=== PATIENT | male | born 1960 | race Two or more races ===

== ENCOUNTER 2017-10-04 19:05 | Emergency (ER) | payer SELFPAY ==
[2017-10-04] MEDS ORDERED: CEPHALEXIN 500 MG CAPSULE PO ONE (19:50)
[2017-10-04] MEDS ORDERED: OXYCODONE-ACETAMINOPHEN 5-325 MG TABLET PO ONE (19:50)
[2017-10-04] MEDS ORDERED: SULFAMETHOXAZOLE/TRIMETHOPRIM 800-160 MG TABLET PO ONE (19:50)
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
[2017-10-04 20:22] VITALS: BP 131/81
== END 2017-10-04 20:21 | disposition home or self-care (01) ==
LOC: ER 19:05
DX: L03.115 Cellulitis of right lower limb (principal); L02.91 Cutaneous abscess, unspecified; M79.604 Pain in right leg; F17.200 Nicotine dependence, unspecified, uncomplicated; I10 Essential (primary) hypertension
CPT/HCPCS: 99283

== ENCOUNTER 2017-10-17 08:49 | Inpatient (IN) | payer SELFPAY ==
--- NOTE | 2017-10-17 09:07 | RADIOLOGY REPORT (SQ) ---
EXAM DESCRIPTION: CT HEAD WITHOUT COMPLETED DATE/TIME: 10/17/2017 8:57 am REASON FOR STUDY: stroke S/S COMPARISON: None. TECHNIQUE: Axial images acquired through the brain without intravenous contrast. Images reviewed wi th bone, brain and subdural windows. Images stored on PACS. All CT scanners at this facility use dose modulation, iterative reconstruction, and/or weight based d osing when appropriate to reduce radiation dose to as low as reasonably achievable (ALARA). [facility]: Dose Right [facility]: CareDose [facility]: Dose Right [facility]: Teradose 4D [facility]: Eyewitness Surveillance RADIATION DOSE: mGy. LIMITATIONS: None. FINDINGS: VENTRICLES: Normal size and contour. CEREBRUM: No masses. No hemorrhage. No midline shift. No evidence for acute infarction. Normal gra y/white matter differentiation. No areas of low density in the white matter. CEREBELLUM: No masses. No hemorrhage. No alteration of density. No evidence for acute infarction. EXTRAAXIAL SPACES: No fluid collections. No masses. ORBITS AND GLOBE: No intra- or extraconal masses. Normal contour of globe without masses. CALVARIUM: No fracture. PARANASAL SINUSES: No fluid or mucosal thickening. SOFT TISSUES: No mass or hematoma. OTHER: No other significant finding. IMPRESSION: NORMAL BRAIN CT WITHOUT CONTRAST. EVIDENCE OF ACUTE STROKE: NO. COMMENT: Pertinent positive or negative findings of the imaging study reported as a CRITICAL EXAM t o ER PROVIDER at09:01 on 10/17/2017. Category of Critical Exam: Stroke protocol. Quality ID # [id number]: Final reports with documentation of one or more dose reduction techniques (e.g., Au tomated exposure control, adjustment of the mA and/or kV according to patient size, use of iterative reconstruction technique) TECHNICAL DOCUMENTATION: JOB ID: [id number] [employer]- All Rights Reserved
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
[2017-10-17 09:22] LABS: PROTHROMBIN TIME 13.9 SEC (11.4-15.4)
[2017-10-17] MEDS ORDERED: ALTEPLASE INJ 100 MG VIAL ONE (09:23)
[2017-10-17] MEDS ORDERED: ALTEPLASE INJ 100 MG VIAL IV ONE (09:27)
[2017-10-17] MEDS ORDERED: IPRATROPIUM/ALBUTEROL 0.5-2.5 MG/3 ML AMPUL NEB ONE ×3 (09:31→16:00)
[2017-10-17 09:33] LABS: ABSOLUTE BASOPHILS # (AUTO) 0.1 10^3/uL (0.0-0.2); ABSOLUTE LYMPHOCYTES (AUTO) 0.9 10^3/uL (0.5-4.7); ABSOLUTE MONOCYTES (AUTO) 0.9 10^3/uL (0.1-1.4); ABSOLUTE NEUT (AUTO) 5.1 10^3/uL (1.7-8.2); BASOPHILS % (AUTO) 0.9 % (0-2); EOSINOPHILS % (AUTO) 0.3 % (0-6); HEMATOCRIT 40.6 % (37.9-51.0); HEMOGLOBIN 13.2 g/dL (13.5-17.0); LYMPHOCYTES % (AUTO) 12.7 % (13-45); MEAN CORPUSCULAR HEMOGLOBIN 28.8 pg (27.0-33.4); MEAN CORPUSCULAR HGB CONC 32.5 g/dL (32.0-36.0); MEAN CORPUSCULAR VOLUME 89 fl (80-97); MONOCYTES % (AUTO) 12.9 % (3-13); PLATELET COUNT 359 10^3/uL (150-450); RED BLOOD COUNT 4.59 10^6/uL (4.35-5.55); RED CELL DISTRIBUTION WIDTH 14.1 % (11.5-14.0); SEGMENTED NEUTROPHILS % (AUTO) 73.2 % (42-78); TOTAL CELLS COUNTED % (AUTO) 100 %
[2017-10-17 09:43] LABS: ALANINE AMINOTRANSFERASE 26 U/L (21-72); ALBUMIN 3.8 g/dL (3.5-5.0); ALKALINE PHOSPHATASE 96 U/L (38-126); ANION GAP 10 (5-19); ASPARTATE AMINO TRANSFERASE 21 U/L (17-59); BILIRUBIN,DIRECT 0.3 mg/dL (0.0-0.4); BILIRUBIN,TOTAL 0.5 mg/dL (0.2-1.3); BLOOD UREA NITROGEN 13 mg/dL (7-20); CALCIUM 9.3 mg/dL (8.4-10.2); CARBON DIOXIDE 25 mmol/L (22-30); CHLORIDE 102 mmol/L (98-107); CREATINE KINASE 77 U/L (55-170); GLUCOSE 134 mg/dL (75-110); POTASSIUM 4.1 mmol/L (3.6-5.0); SODIUM 136.6 mmol/L (137-145); TOTAL PROTEIN 6.8 g/dL (6.3-8.2)
[2017-10-17 09:55] LABS: CREATINE KINASE MB < 0.22 ng/mL (<4.55); TROPONIN I 0.015 ng/mL
[2017-10-17] MEDS ORDERED: LABETALOL HCL INJ 20 MG/4 ML DISP.SYRIN IV PRN ×2 (10:46→11:40)
[2017-10-17] MEDS ORDERED: NORMAL SALINE 1000 ML 1,000 ML IV PRN (10:46)
[2017-10-17] MEDS ORDERED: HYDRALAZINE HCL INJ/PF 20 MG/1 ML SDV IV PRN (12:28)
[2017-10-17] MEDS ORDERED: INFLUENZA ADLT QUAD (36MOS+) 2017-18 VAC 0.5 ML SYR IM PRN (13:25)
--- NOTE | 2017-10-17 14:39 | RADIOLOGY REPORT (SQ) ---
EXAM DESCRIPTION: CAROTID DOPPLER COMPLETED DATE/TIME: 10/17/2017 2:25 pm REASON FOR STUDY: stroke COMPARISON: None. TECHNIQUE: Grayscale ultrasound, Doppler velocity and spectra, and color Doppler images acquired of the extra-cranial carotid and vertebral arteries. Images stored on PACS. LIMITATIONS: None. FINDINGS: RIGHT CAROTID CCA Velocities: Within normal limits. ICA Velocities Peak systolic 0.54 m/s. End diastolic 0.29 m/s. Proximal ICA/CCA peak systolic ratio 1.0. Spectra normal. No significant plaque. LEFT CAROTID CCA Velocities: Within normal limits. ICA Velocities Peak systolic 0.54 m/s. End diastolic 0.26 m/s. Proximal ICA/CCA peak systolic ratio 0.9. Spectra normal. No significant plaque. VERTEBRAL ARTERIES: Antegrade flow. Normal waveforms. SUBCLAVIAN ARTERIES: No finding. OTHER: No other significant finding. IMPRESSION: NO HEMODYNAMICALLY SIGNIFICANT STENOSIS. COMMENT: Quality ID #[id number]: Velocity criteria are extrapolated from the diameter data as defined by t he Society of Radiologists in Ultrasound Consensus Conference. Radiology 2003: 229; 340-346. TECHNICAL DOCUMENTATION: JOB ID: [id number] [employer]- All Rights Reserved
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
--- NOTE | 2017-10-17 20:19 | XCELERA REPORT ---
[address] [address] Transthoracic Echocardiogram Report Name: MANAV ENGEL Age: 56 yrs Gender: Male : 1960 Patient Status: Inpatient Patient Location: ICU^601^A Study Date: 10/17/2017 12:59 PM Height: 66 in Weight: 123 lb BSA: 1.6 m2 Procedure: A complete two-dimensional transthoracic echocardiogram was performed (2D, M-mode, spectral and color flow Doppler). The study was technically difficult with many images being suboptimal in quality. Reason For Study: stroke Ordering Physician: KAVON CARROLL Performed By: Rachel Lyn Interpretation Summary The study was technically difficult with many images being suboptimal in quality. There is severe mitral stenosis There is a mild amount of mitral regurgitation There is severe mitral leaflet calcification. The left ventricular ejection fraction is within normal limits. There is normal left ventricular wall thickness. The left ventricle is grossly normal size. Septal motion is consistent with post-operative state The right ventricle is mildly dilated. Right ventricular function cannot be assessed due to poor image quality. The right atrium is normal in size The left atrium is severely dilated. There is no aortic valve stenosis No aortic regurgitation is present. There is a mild amount of tricuspid regurgitation There is moderate pulmonary hypertension by echo Right ventricular systolic pressure is estimated to be elevated at 40- 50mmHg. The aortic root is not well visualized. The inferior vena cava appeared normal and decreased > 50% with respiration (RAP 5-10 mmHg) There is no pericardial effusion. Consider MAX if clinically indicated. May consider mobile cardiac telemetry monitoring (MCT) for ruling out transient AFIB. Can not R/O vegetation. Recommend multiple blood cultures and MAX. MMode/2D Measurements & Calculations RVDd: 3.3 cm LVIDd: 4.1 cm FS: 27.5 % Ao root diam: 2.0 cm IVSd: 0.76 cm LVIDs: 2.9 cm EDV(Teich): 72.1 ml LVPWd: 0.80 cmESV(Teich): 33.2 ml Ao root area: 3.3 cm2 EF(Teich): 54.0 % LVOT diam: 1.5 cm LVOT area: 1.8 cm2 Doppler Measurements & Calculations MV E max stacey: MV V2 max: MV dec slope: Ao V2 max: 266.2 cm/sec 308.1 cm/sec 327.1 cm/sec2 155.0 cm/sec MV A max stacey: MV max PG: MV dec time: Ao max P.2 cm/sec 38.1 mmHg 0.81 sec 9.6 mmHg MV E/A: 1.1 MV V2 mean: SHAHIDA(V,D): 1.2 cm2 174.8 cm/sec MV mean P.2 mmHg MV V2 VTI: 103.4 cm MVA(VTI): 0.29 cm2 LV V1 max PG: SV(LVOT): 30.1 ml PA V2 max: PI end-d stacey: 4.1 mmHg 80.0 cm/sec 104.3 cm/sec LV V1 mean PG: PA max P.6 mmHg 1.9 mmHg LV V1 max: 100.7 cm/sec LV V1 mean: 63.1 cm/sec LV V1 VTI: 16.3 cm TR max stacey: 309.9 cm/sec TR max P.4 mmHg Left Ventricle The left ventricle is grossly normal size. There is normal left ventricular wall thickness. The left ventricular ejection fraction is within normal limits. LV diastolic function could not be adequately assessed due to significant valve regurgitation and/or stenosis. Septal motion is consistent with post-operative state. Right Ventricle The right ventricle is mildly dilated. Right ventricular function cannot be assessed due to poor image quality. Atria The right atrium is normal in size. The left atrium is severely dilated. Interarterial septum not well visualized and not well dopplered. Cannot comment on ASD/PFO presence. Mitral Valve There is severe mitral leaflet calcification. There is severe mitral stenosis. There is a mild amount of mitral regurgitation. Aortic Valve The aortic valve is not well visualized secondary to technical limitations. There is no aortic valve stenosis. No aortic regurgitation is present. Tricuspid Valve The tricuspid valve is not well visualized secondary to technical limitations. There is no tricuspid stenosis. There is a mild amount of tricuspid regurgitation. There is moderate pulmonary hypertension by echo. Right ventricular systolic pressure is estimated to be elevated at 40- 50mmHg. Pulmonic Valve The pulmonic valve is not well visualized. Great Vessels The aortic root is not well visualized. The inferior vena cava appeared normal and decreased > 50% with respiration (RAP 5-10 mmHg). Effusions There is no pericardial effusion. Incidental Findings Consider MAX if clinically indicated. May consider mobile cardiac telemetry monitoring (MCT) for ruling out transient AFIB. Can not R/O vegetation. Recommend multiple blood cultures and MAX. : KAVON CARROLL > Christal Gauthier
[2017-10-17] MEDS ORDERED: ACETAMINOPHEN 325 MG TABLET ONE (20:29)
[2017-10-17] MEDS: IPRATROPIUM/ALBUTEROL 0.5-2.5 MG/3 ML AMPUL NEB SCH (20:30)
[2017-10-17 21:31] LABS: ANION GAP 10 (5-19); BLOOD UREA NITROGEN 12 mg/dL (7-20); CARBON DIOXIDE 22 mmol/L (22-30); CHLORIDE 102 mmol/L (98-107); GLUCOSE 133 mg/dL (75-110); MAGNESIUM 1.7 mg/dL (1.6-2.3); POTASSIUM 4.3 mmol/L (3.6-5.0); SODIUM 133.9 mmol/L (137-145)
[2017-10-17 21:53] LABS: APPEARANCE,URINE CLEAR; BILIRUBIN,URINE NEGATIVE (NEGATIVE); COLOR,URINE YELLOW; GLUCOSE, URINE >=500 mg/dL (NEGATIVE); KETONES,URINE NEGATIVE (NEGATIVE); LEUKOCYTE ESTERASE,URINE NEGATIVE (NEGATIVE); NITRITE,URINE NEGATIVE (NEGATIVE); PROTEIN,URINE NEGATIVE (NEGATIVE); URINE SPECIFIC GRAVITY 1.008; UROBILINOGEN,URINE NEGATIVE mg/dL (<2.0)
--- NOTE | 2017-10-17 23:06 | RADIOLOGY REPORT (SQ) ---
EXAM DESCRIPTION: CHEST SINGLE VIEW COMPLETED DATE/TIME: 10/17/2017 9:07 pm REASON FOR STUDY: COUGH, SOB COMPARISON: Earlier exam same date EXAM PARAMETERS: NUMBER OF VIEWS: One view. TECHNIQUE: Single frontal radiographic view of the chest acquired. RADIATION DOSE: NA LIMITATIONS: None. FINDINGS: LUNGS AND PLEURA: Mild increased interstitial markings. Basilar subsegmental atelectasis is present in the right lung base. No pneumothorax. MEDIASTINUM AND HILAR STRUCTURES: Stable. HEART AND VASCULAR STRUCTURES: Stable. BONES: No acute findings. HARDWARE: CABG. OTHER: No other significant finding. IMPRESSION: Mild increased interstitial markings. Basilar subsegmental atelectasis is present in th e right lung base. TECHNICAL DOCUMENTATION: JOB ID: [id number] [id number] [employer]- All Rights Reserved
[2017-10-17] MEDS ORDERED: MAGNESIUM SULFATE/D5W 1 GM/100 ML RTUPB IV ONE (23:18)
[2017-10-17] MEDS: MAGNESIUM SULFATE 1 GM/D5W 100 ML IV SCH (23:25)
[2017-10-18] MEDS: MAGNESIUM SULFATE 1 GM/D5W 100 ML IV SCH (00:26)
[2017-10-18] MEDS: ACETAMINOPHEN 325 MG TABLET PO PRN ×5 (03:43→22:15)
[2017-10-18 04:17] LABS: ABSOLUTE NEUT (AUTO) 5.6 10^3/uL (1.7-8.2); BASOPHILS % (AUTO) 0.5 % (0-2); EOSINOPHILS % (AUTO) 0.3 % (0-6); HEMATOCRIT 42.2 % (37.9-51.0); HEMOGLOBIN 13.8 g/dL (13.5-17.0); LYMPHOCYTES % (AUTO) 12.8 % (13-45); MEAN CORPUSCULAR HEMOGLOBIN 28.9 pg (27.0-33.4); MEAN CORPUSCULAR HGB CONC 32.6 g/dL (32.0-36.0); MEAN CORPUSCULAR VOLUME 89 fl (80-97); PLATELET COUNT 301 10^3/uL (150-450); RED BLOOD COUNT 4.77 10^6/uL (4.35-5.55); SEGMENTED NEUTROPHILS % (AUTO) 73.4 % (42-78); TOTAL CELLS COUNTED % (AUTO) 100 %; WHITE BLOOD COUNT 7.7 10^3/uL (4.0-10.5)
[2017-10-18] MEDS ORDERED: ACETAMINOPHEN 325 MG TABLET PO ONE (04:23)
[2017-10-18 04:32] LABS: ANION GAP 14 (5-19); BLOOD UREA NITROGEN 10 mg/dL (7-20); CALCIUM 8.9 mg/dL (8.4-10.2); CARBON DIOXIDE 22 mmol/L (22-30); CHLORIDE 104 mmol/L (98-107); CHOLESTEROL 167.95 mg/dL (0-200); GLUCOSE 102 mg/dL (75-110); POTASSIUM 4.4 mmol/L (3.6-5.0); SODIUM 140.2 mmol/L (137-145); TRIGLYCERIDES 99 mg/dL (<150)
[2017-10-18 04:42] LABS: DIRECT LDL 108 mg/dL (<100)
[2017-10-18] MEDS ORDERED: CLINDAMYCIN 900 MG/D5W RTU 50 ML IV ONE (04:45)
--- NOTE | 2017-10-18 08:02 | EKG REPORT ---
SEVERITY:- ABNORMAL ECG - SINUS RHYTHM ATRIAL PREMATURE COMPLEX BORDERLINE RIGHT AXIS DEVIATION ABNORMAL T, CONSIDER ISCHEMIA, ANT-LAT LEADS : Confirmed by: Etta Alcantara MD 18-Oct-2017 08:00:54
--- NOTE | 2017-10-18 08:02 | EKG REPORT ---
SEVERITY:- ABNORMAL ECG - SINUS RHYTHM SUPRAVENTRICULAR BIGEMINY CONSIDER RIGHT VENTRICULAR HYPERTROPHY ABNORMAL T, CONSIDER ISCHEMIA, ANT-LAT LEADS : Confirmed by: Etta Alcantara MD 18-Oct-2017 08:00:49
[2017-10-18] MEDS: IPRATROPIUM/ALBUTEROL 0.5-2.5 MG/3 ML AMPUL NEB SCH ×2 (08:31→13:44)
[2017-10-18] MEDS: PANTOPRAZOLE SODIUM 40 MG VIAL IV SCH (10:54)
[2017-10-18] MEDS: NICOTINE 21 MG/24 HR PATCH.TD24 TD SCH (10:56)
[2017-10-18] MEDS ORDERED: ACETAMINOPHEN 325 MG TABLET PO PRN (12:50)
[2017-10-18] MEDS ORDERED: VANCOMYCIN HCL 0 MG in DEXTROSE 5%-WATER 250 ML IV NR (13:00)
[2017-10-18] MEDS ORDERED: ACETAMINOPHEN 325 MG TABLET ONE (13:03)
[2017-10-18] MEDS ORDERED: CLINDAMYCIN 900 MG/D5W RTU 50 ML IV SCH (14:00)
[2017-10-18] MEDS ORDERED: VANCOMYCIN HCL 750 MG in DEXTROSE 5%-WATER 250 ML IV ONE (14:30)
--- NOTE | 2017-10-18 14:43 | RADIOLOGY REPORT (SQ) ---
EXAM DESCRIPTION: CT HEAD WITHOUT COMPLETED DATE/TIME: 10/18/2017 2:34 pm REASON FOR STUDY: Follow up stroke given TPA COMPARISON: 10/17/2017. TECHNIQUE: Axial images acquired through the brain without intravenous contrast. Images reviewed wi th bone, brain and subdural windows. Images stored on PACS. All CT scanners at this facility use dose modulation, iterative reconstruction, and/or weight based d osing when appropriate to reduce radiation dose to as low as reasonably achievable (ALARA). [facility]: Dose Right [facility]: CareDose [facility]: Dose Right [facility]: Teradose 4D [facility]: [email or web address] RADIATION DOSE: CT Rad equipment meets quality standard of care and radiation dose reduction techniq ues were employed. CTDIvol: 64.6 mGy. DLP: 1163 mGy-cm. mGy. LIMITATIONS: None. FINDINGS: VENTRICLES: Normal size and contour. CEREBRUM: No masses. No hemorrhage. No midline shift. There is a new area of decreased attenuation in the left frontal lobe, not present on the previous study. Normal coelho/white matter differentiatio n. CEREBELLUM: No masses. No hemorrhage. No alteration of density. No evidence for acute infarction. EXTRAAXIAL SPACES: No fluid collections. No masses. ORBITS AND GLOBE: No intra- or extraconal masses. Normal contour of globe without masses. CALVARIUM: No fracture. PARANASAL SINUSES: No fluid or mucosal thickening. SOFT TISSUES: No mass or hematoma. OTHER: No other significant finding. IMPRESSION: NEW AREA OF DECREASED ATTENUATION IN THE LEFT FRONTAL LOBE CONSISTENT WITH EVOLVING INFA RCT. NO EVIDENCE OF HEMORRHAGE. EVIDENCE OF ACUTE STROKE: YES. LEFT MCA COMMENT: Quality ID # [id number]: Final reports with documentation of one or more dose reduction techniques (e.g., Automated exposure control, adjustment of the mA and/or kV according to patient size, use of iterative reconstruction technique) TECHNICAL DOCUMENTATION: JOB ID: [id number] [employer]- All Rights Reserved
[2017-10-18 16:28] LABS: URINE AMPHETAMINES SCREEN NEGATIVE; URINE BARBITURATES SCREEN NEGATIVE; URINE BENZODIAZEPINES SCREEN NEGATIVE; URINE COCAINE SCREEN NEGATIVE; URINE MARIJUANA (THC) SCREEN NEGATIVE; URINE METHADONE SCREEN NEGATIVE; URINE PHENCYCLIDINE SCREEN NEGATIVE
[2017-10-18] MEDS: LEVALBUTEROL HCL NEB 1.25 MG/3 ML AMPUL NEB SCH (17:54)
[2017-10-18] MEDS ORDERED: PIPERACILLIN/TAZOBACTAM 3.375 GM VIAL IV SCH (18:00)
[2017-10-18] MEDS: PIPERACILLIN SODIUM/TAZOBACTAM 3.375 GM in NORMAL SALINE 100 ML IV SCH ×2 (18:18→23:05)
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
[2017-10-18] MEDS: ATORVASTATIN CALCIUM 80 MG TABLET PO SCH (21:13)
[2017-10-18] MEDS: VANCOMYCIN HCL 750 MG in DEXTROSE 5%-WATER 250 ML IV SCH (21:13)
[2017-10-18] MEDS ORDERED: KETOROLAC TROMETHAMINE INJ/PF 30 MG/1 ML SDV ONE (23:00)
[2017-10-18] MEDS ORDERED: KETOROLAC TROMETHAMINE INJ/PF 30 MG/1 ML SDV IV ONE (23:45)
[2017-10-19] MEDS: LEVALBUTEROL HCL NEB 1.25 MG/3 ML AMPUL NEB SCH ×3 (00:33→16:51)
[2017-10-19 04:14] LABS: ANION GAP 9 (5-19); BLOOD UREA NITROGEN 10 mg/dL (7-20); CALCIUM 8.5 mg/dL (8.4-10.2); CARBON DIOXIDE 23 mmol/L (22-30); CHLORIDE 108 mmol/L (98-107); GLUCOSE 118 mg/dL (75-110); POTASSIUM 3.8 mmol/L (3.6-5.0); SODIUM 139.7 mmol/L (137-145)
[2017-10-19] MEDS: PIPERACILLIN SODIUM/TAZOBACTAM 3.375 GM in NORMAL SALINE 100 ML IV SCH ×3 (05:14→18:24)
[2017-10-19] MEDS: PANTOPRAZOLE SODIUM 40 MG VIAL IV SCH (09:37)
[2017-10-19] MEDS: CLOPIDOGREL BISULFATE 75 MG TABLET PO SCH (09:42)
[2017-10-19] MEDS: ASPIRIN 325 MG TABLET PO SCH (09:46)
[2017-10-19] MEDS: NICOTINE 21 MG/24 HR PATCH.TD24 TD SCH (09:47)
[2017-10-19] MEDS: VANCOMYCIN HCL 750 MG in DEXTROSE 5%-WATER 250 ML IV SCH ×2 (09:53→22:06)
[2017-10-19] MEDS ORDERED: DILTIAZEM HCL 120 MG CAP.SR.24H PO SCH ×2 (10:00→15:47)
--- NOTE | 2017-10-19 12:16 | PDOC PROGRESS REPORT ---
Subjective Progress Note for:: 10/19/17 Subjective:: Patient seems to be doing better with gradual improvement. Pt is denying any chest arm or neck discomfort. Patient denying any PND, orthopnea. Patient denied any sustained palpitations, dizziness, syncope, near syncope. Patient denying any fever chills. Patient denying any other significant discomfort. Patient is maintaining sinus rhythm. Short run of paroxysmal atrial tachycardia noted. These are nonsustained. Review of systems: Rest review of systems negative. Medications: Medications have been reviewed. Reason For Visit: STROKE Physical Exam Vital Signs: Temp Pulse Resp BP Pulse Ox 98.4 F 91 29 H 113/87 H 100 10/19/17 10:00 10/19/17 10:00 10/19/17 10:18 10/19/17 10:18 10/19/17 10:18 Intake & Output 10/18/17 10/19/17 10/20/17 06:59 06:59 06:59 Intake Total 2409 2835 Output Total 2245 1570 115 Balance 164 1265 -115 Weight 56.8 kg 57.4 kg Exam: GENERAL: well-nourished and in no acute distress. Alert and oriented x3 HEAD: Atraumatic, normocephalic. EYES: Pupils equal round and reactive to light, extraocular movements intact, sclera anicteric, conjunctiva are normal. ENT: TMs normal, nares patent, oropharynx clear without exudates. Moist mucous membranes. No oral ulcerations or bleeding gums noted NECK: supple without lymphadenopathy. Trachea is central. No cervical or axillary lymphadenopathy noted. Carotids are 2+, JVD WNL LUNGS: Respiration seems nonlabored, no significant accessory muscle action noted. Breath sounds clear to auscultation bilaterally and equal noted. No wheezes rales or rhonchi noted. No significant dullness noted on percussion. CHEST: Palpation of the chest wall shows no significant chest wall tenderness. No other significant abnormalities noted. 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 No rubs, no gallops. ABDOMEN: Soft, no significant tenderness appreciated, normoactive bowel sounds. No guarding, no rebound. No rigidity noted . No masses appreciated. EXTREMITIES: Pedal pulses are 1-2+, no calf tenderness noted. No clubbing or cyanosis.trace pedal edema noted NEUROLOGICAL: Focused neurological exam showed no significant neurologic deficit. Normal speech, no focal weakness appreciated. PSYCH: Normal mood, normal affect. Judgment and insight within normal limits. SKIN: No significant ecchymosis, rash, ulcerations or signs of pruritus noted. MUSCULOSKELETAL EXAM: No significant joint swelling noted. Results Laboratory Results: 10/18/17 04:04 10/19/17 03:54 10/19/17 10/19/17 03:54 03:54 Sodium 139.7 Potassium 3.8 Chloride 108 H Carbon Dioxide 23 Anion Gap 9 BUN 10 Creatinine 1.15 Est GFR ( Amer) > 60 Est GFR (Non-Af Amer) > 60 Glucose 118 H Calcium 8.5 Magnesium 1.9 10/17/17 21:00 Catheterized Urine Urine Culture - Final NO GROWTH 2 DAYS EKG Comments: Telemetry strips shows predominantly sinus rhythm with short run of nonsustained paroxysmal atrial tachycardia. Impressions: Carotid Doppler Study 10/17/17 10:50 IMPRESSION: NO HEMODYNAMICALLY SIGNIFICANT STENOSIS. Chest X-Ray 10/17/17 20:37 IMPRESSION: Mild increased interstitial markings. Basilar subsegmental atelectasis is present in the right lung base. Head CT 10/18/17 13:00 IMPRESSION: NEW AREA OF DECREASED ATTENUATION IN THE LEFT FRONTAL LOBE CONSISTENT WITH EVOLVING INFARCT. NO EVIDENCE OF HEMORRHAGE. EVIDENCE OF ACUTE STROKE: YES. LEFT MCA Assessment & Plan - Diagnosis (1) Severe mitral valve stenosis Is this a current diagnosis for this admission?: Yes (2) Acute cerebrovascular accident (CVA) Is this a current diagnosis for this admission?: Yes (3) Hypertension Qualifiers: Hypertension type: essential hypertension Qualified Code(s): I10 - Essential (primary) hypertension Is this a current diagnosis for this admission?: Yes (4) Tobacco abuse Is this a current diagnosis for this admission?: Yes (5) Atrial flutter Qualifiers: Atrial flutter type: unspecified Qualified Code(s): I48.92 - Unspecified atrial flutter Is this a current diagnosis for this admission?: Yes (6) Endocarditis Qualifiers: Endocarditis type: infective Infective endocarditis organism: unspecified organism Chronicity: acute Qualified Code(s): I33.0 - Acute and subacute infective endocarditis Is this a current diagnosis for this admission?: Yes - Notes Notes: Severe mitral stenosis: This is based on echocardiogram. Surprisingly patient does not report much symptoms related to it. Acute cerebrovascular accident: Patient is status post TPA. Patient will benefit from chronic anticoagulation. Patient probably need to be started on Coumadin. This is because of severe mitral stenosis. Hypertension: Reasonably well-controlled. Tobacco abuse: Patient has been advised to quit smoking. History of atrial flutter: I have not noted any atrial flutter this admission but patient at high risk of having atrial tachyarrhythmia due to significant enlargement of the left atrium. Endocarditis: This is being suspected based on patient's clinical presentation but echocardiogram is equivocal. Patient will benefit from a transesophageal echocardiogram. The hospitalist planning for arranging this. Patient already has been started on antibiotics. Patient may have culture-negative endocarditis but would definitely need transesophageal echocardiogram to confirm this. - Time Time with patient: Greater than 35 minutes - CODE STATUS was discussed, patient remains full code. Surrogate decision-maker unchanged. Multiple medical problems were addressed. More than 50% of the time spent coordinating care, discussing management plans with involved caregivers. Management plans discussed with involved personnels. Medical decision making was of moderate to high complexity, patient's has multiple comorbidities. Medications reviewed and adjusted accordingly: Yes
[2017-10-19] MEDS: ACETAMINOPHEN 325 MG TABLET PO PRN (18:23)
[2017-10-19] MEDS: TAMSULOSIN HCL 0.4 MG CAP.SR.24H PO SCH (18:24)
[2017-10-19 19:29] LABS: ABSOLUTE EOSINOPHILS # (AUTO) 0.2 10^3/uL (0.0-0.6); ABSOLUTE LYMPHOCYTES (AUTO) 1.6 10^3/uL (0.5-4.7); ABSOLUTE MONOCYTES (AUTO) 0.9 10^3/uL (0.1-1.4); ABSOLUTE NEUT (AUTO) 4.4 10^3/uL (1.7-8.2); BASOPHILS % (AUTO) 0.5 % (0-2); EOSINOPHILS % (AUTO) 3.2 % (0-6); HEMATOCRIT 34.4 % (37.9-51.0); LYMPHOCYTES % (AUTO) 21.8 % (13-45); MEAN CORPUSCULAR HEMOGLOBIN 29.5 pg (27.0-33.4); MEAN CORPUSCULAR HGB CONC 33.5 g/dL (32.0-36.0); MEAN CORPUSCULAR VOLUME 88 fl (80-97); MONOCYTES % (AUTO) 12.5 % (3-13); PLATELET COUNT 289 10^3/uL (150-450); TOTAL CELLS COUNTED % (AUTO) 100 %; WHITE BLOOD COUNT 7.2 10^3/uL (4.0-10.5)
[2017-10-19 19:39] LABS: HEMOGLOBIN 11.5 g/dL (13.5-17.0)
[2017-10-19] MEDS: DILTIAZEM HCL 30 MG TABLET PO SCH (22:06)
[2017-10-19] MEDS: BENZONATATE 100 MG CAPSULE PO SCH (22:06)
[2017-10-19] MEDS: ATORVASTATIN CALCIUM 80 MG TABLET PO SCH (22:06)
[2017-10-20] MEDS: LEVALBUTEROL HCL NEB 1.25 MG/3 ML AMPUL NEB SCH ×2 (00:19→08:30)
[2017-10-20] MEDS: PIPERACILLIN SODIUM/TAZOBACTAM 3.375 GM in NORMAL SALINE 100 ML IV SCH ×5 (00:54→23:32)
[2017-10-20 05:46] LABS: ANION GAP 9 (5-19); BLOOD UREA NITROGEN 8 mg/dL (7-20); CALCIUM 8.6 mg/dL (8.4-10.2); CARBON DIOXIDE 23 mmol/L (22-30); CHLORIDE 108 mmol/L (98-107); GLUCOSE 102 mg/dL (75-110); MAGNESIUM 1.8 mg/dL (1.6-2.3); POTASSIUM 3.9 mmol/L (3.6-5.0); SODIUM 140.2 mmol/L (137-145)
[2017-10-20] MEDS: BENZONATATE 100 MG CAPSULE PO SCH ×3 (06:09→22:22)
[2017-10-20] MEDS ORDERED: DEXTROSE 5%-WATER 250 ML with NOREPINEPHRINE BITARTRATE 4 MG IV PRN ×2 (07:58)
[2017-10-20] MEDS ORDERED: NOREPINEPHRINE BITARTRATE INJ/PF 4 MG/4 ML SDV IV PRN (08:00)
[2017-10-20 10:08] LABS: VANCOMYCIN,TROUGH 8.7 ug/mL (5.0-20.0)
--- NOTE | 2017-10-20 10:31 | RADIOLOGY REPORT (SQ) ---
EXAM DESCRIPTION: U/S NON-OB PELVIS LTD W/O DOP COMPLETED DATE/TIME: 10/20/2017 10:23 am REASON FOR STUDY: urinary rentention concern for BPH COMPARISON: None. TECHNIQUE: Bladder scan. LIMITATIONS: None. FINDINGS: Mildly distended bladder. Large bladder diverticulum. OTHER: Likely enlarged prostate gland. Difficult to visualize. IMPRESSION: Mildly distended bladder but there is a large bladder diverticulum. TECHNICAL DOCUMENTATION: JOB ID: [id number] [employer]- All Rights Reserved
[2017-10-20] MEDS: ASPIRIN 325 MG TABLET PO SCH (10:48)
[2017-10-20] MEDS: DILTIAZEM HCL 30 MG TABLET PO SCH ×2 (10:49→22:22)
[2017-10-20] MEDS: CLOPIDOGREL BISULFATE 75 MG TABLET PO SCH (10:49)
[2017-10-20] MEDS: NICOTINE 21 MG/24 HR PATCH.TD24 TD SCH (10:49)
[2017-10-20] MEDS: FAMOTIDINE 20 MG TABLET PO SCH (10:51)
[2017-10-20] MEDS: FINASTERIDE 5 MG TABLET PO SCH (10:51)
--- NOTE | 2017-10-20 12:12 | PDOC PROGRESS REPORT ---
Subjective Progress Note for:: 10/20/17 Subjective:: Patient seems to be doing better with gradual improvement. Pt is denying any chest arm or neck discomfort. Patient denying any PND, orthopnea. Patient denied any sustained palpitations, dizziness, syncope, near syncope. Patient denying any fever chills. Patient denying any other significant discomfort. The hospitalist has been in talk with [facility] and also [facility]. They did not want to transfer the patient. They did agree that patient would need his valvular situation looked at but not immediately. As regards possibility of endocarditis, they did not think it is likely diagnosis in view of negative blood cultures and his fever resolving quickly with antibiotics. Patient is maintaining sinus rhythm. Review of systems: Rest review of systems negative. Medications: Medications have been reviewed. Reason For Visit: STROKE Physical Exam Vital Signs: Temp Pulse Resp BP Pulse Ox 98.0 F 78 20 116/77 99 10/20/17 11:03 10/20/17 11:03 10/20/17 11:03 10/20/17 11:03 10/20/17 08:58 Intake & Output 10/19/17 10/20/17 10/21/17 06:59 06:59 06:59 Intake Total 2835 1698 177 Output Total 1570 1730 351 Balance 1265 -32 -174 Weight 57.4 kg 57.9 kg Exam: GENERAL: well-nourished and in no acute distress. Alert and oriented x3 HEAD: Atraumatic, normocephalic. EYES: Pupils equal round and reactive to light, extraocular movements intact, sclera anicteric, conjunctiva are normal. ENT: TMs normal, nares patent, oropharynx clear without exudates. Moist mucous membranes. No oral ulcerations or bleeding gums noted NECK: supple without lymphadenopathy. Trachea is central. No cervical or axillary lymphadenopathy noted. Carotids are 2+, JVD WNL LUNGS: Respiration seems nonlabored, no significant accessory muscle action noted. Breath sounds clear to auscultation bilaterally and equal noted. No wheezes rales or rhonchi noted. No significant dullness noted on percussion. CHEST: Palpation of the chest wall shows no significant chest wall tenderness. No other significant abnormalities noted. 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 ABDOMEN: Soft, no significant tenderness appreciated, normoactive bowel sounds. No guarding, no rebound. No rigidity noted . No masses appreciated. EXTREMITIES: Pedal pulses are 1-2+, no calf tenderness noted. No clubbing or cyanosis.trace to 1+ pedal edema noted NEUROLOGICAL: Focused neurological exam showed no significant neurologic deficit. Normal speech, no focal weakness appreciated. PSYCH: Normal mood, normal affect. Judgment and insight within normal limits. SKIN: No significant ecchymosis, rash, ulcerations or signs of pruritus noted. MUSCULOSKELETAL EXAM: No significant joint swelling noted. Results Laboratory Results: 10/19/17 19:20 10/20/17 04:58 10/19/17 10/20/17 19:20 04:58 WBC 7.2 RBC 3.90 L Hgb 11.5 L D Hct 34.4 L MCV 88 MCH 29.5 MCHC 33.5 RDW 14.0 Plt Count 289 Seg Neutrophils % 62.0 Lymphocytes % 21.8 Monocytes % 12.5 Eosinophils % 3.2 Basophils % 0.5 Absolute Neutrophils 4.4 Absolute Lymphocytes 1.6 Absolute Monocytes 0.9 Absolute Eosinophils 0.2 Absolute Basophils 0.0 Sodium 140.2 Potassium 3.9 Chloride 108 H Carbon Dioxide 23 Anion Gap 9 BUN 8 Creatinine 1.00 Est GFR ( Amer) > 60 Est GFR (Non-Af Amer) > 60 Glucose 102 Calcium 8.6 Magnesium 1.8 10/17/17 21:00 Catheterized Urine Urine Culture - Final NO GROWTH 2 DAYS Impressions: Carotid Doppler Study 10/17/17 10:50 IMPRESSION: NO HEMODYNAMICALLY SIGNIFICANT STENOSIS. Chest X-Ray 10/17/17 20:37 IMPRESSION: Mild increased interstitial markings. Basilar subsegmental atelectasis is present in the right lung base. Head CT 10/18/17 13:00 IMPRESSION: NEW AREA OF DECREASED ATTENUATION IN THE LEFT FRONTAL LOBE CONSISTENT WITH EVOLVING INFARCT. NO EVIDENCE OF HEMORRHAGE. EVIDENCE OF ACUTE STROKE: YES. LEFT MCA Pelvis Ultrasound 10/20/17 00:00 IMPRESSION: Mildly distended bladder but there is a large bladder diverticulum. Assessment & Plan - Diagnosis (1) Severe mitral valve stenosis Is this a current diagnosis for this admission?: Yes (2) Acute cerebrovascular accident (CVA) Is this a current diagnosis for this admission?: Yes (3) Hypertension Qualifiers: Hypertension type: essential hypertension Qualified Code(s): I10 - Essential (primary) hypertension Is this a current diagnosis for this admission?: Yes (4) Tobacco abuse Is this a current diagnosis for this admission?: Yes (5) Atrial flutter Qualifiers: Atrial flutter type: unspecified Qualified Code(s): I48.92 - Unspecified atrial flutter Is this a current diagnosis for this admission?: Yes (6) Paroxysmal atrial tachycardia Is this a current diagnosis for this admission?: Yes - Notes Notes: Patient remains stable but has multiple chronic problems which would need to be addressed as an outpatient. Patient will definitely benefit from setting up appointments with tertiary care automatic maintainer prior to discharge. This is especially to look at the mitral valve issue. Paroxysmal atrial tachycardia, no significant recurrences. Consider continuing antibiotics for total of 2 weeks. Continue current medications which she seems to be tolerating reasonably well. Will continue to follow patient until discharge. - Time Time with patient: 15-25 minutes - CODE STATUS was discussed, patient remains full code. Surrogate decision-maker unchanged. Multiple medical problems were addressed. More than 50% of the time spent coordinating care, discussing management plans with involved caregivers. Management plans discussed with involved personnels. Medical decision making was of moderate to high complexity , patient's has multiple comorbidities. Medications reviewed and adjusted accordingly: Yes
[2017-10-20] MEDS: TAMSULOSIN HCL 0.4 MG CAP.SR.24H PO SCH (17:02)
[2017-10-20] MEDS: LEVALBUTEROL HCL NEB 1.25 MG/3 ML AMPUL NEB PRN (20:30)
[2017-10-20] MEDS: ATORVASTATIN CALCIUM 80 MG TABLET PO SCH (22:22)
[2017-10-21] MEDS: LEVALBUTEROL HCL NEB 1.25 MG/3 ML AMPUL NEB PRN (04:04)
[2017-10-21] MEDS: BENZONATATE 100 MG CAPSULE PO SCH (05:29)
[2017-10-21] MEDS: PIPERACILLIN SODIUM/TAZOBACTAM 3.375 GM in NORMAL SALINE 100 ML IV SCH ×2 (05:29→11:30)
[2017-10-21] MEDS: FINASTERIDE 5 MG TABLET PO SCH (10:06)
[2017-10-21] MEDS: FAMOTIDINE 20 MG TABLET PO SCH (10:06)
[2017-10-21] MEDS: DILTIAZEM HCL 30 MG TABLET PO SCH (10:07)
[2017-10-21] MEDS: NICOTINE 21 MG/24 HR PATCH.TD24 TD SCH (10:07)
[2017-10-21] MEDS: CLOPIDOGREL BISULFATE 75 MG TABLET PO SCH (10:07)
[2017-10-21] MEDS: ASPIRIN 325 MG TABLET PO SCH (10:07)
--- NOTE | 2017-10-21 13:36 | PDOC PROGRESS REPORT ---
Subjective Progress Note for:: 10/21/17 Subjective:: No significant change since yesterday. I am told by the nurses that patient has ambulated inside the room without any difficulty. His mental status seems to be gradually improving. Patient seems to be doing better with gradual improvement. Pt is denying any chest arm or neck discomfort. Patient denying any PND, orthopnea. Patient denied any sustained palpitations, dizziness, syncope, near syncope. Patient denying any fever chills. Patient denying any other significant discomfort. The hospitalist has been in talk with [facility] and also [facility]. They did not want to transfer the patient. They did agree that patient would need his valvular situation looked at but not immediately. As regards possibility of endocarditis, they did not think it is likely diagnosis in view of negative blood cultures and his fever resolving quickly with antibiotics. Patient is maintaining sinus rhythm. There has been no recurrence of any significant tacky or bradycardia arrhythmias. Review of systems: Rest review of systems negative. Medications: Medications have been reviewed. Reason For Visit: STROKE Physical Exam Vital Signs: Temp Pulse Resp BP Pulse Ox 97.6 F 78 22 H 114/95 H 100 10/21/17 11:49 10/21/17 12:00 10/21/17 12:00 10/21/17 12:00 10/21/17 12:00 Intake & Output 10/20/17 10/21/17 10/22/17 06:59 06:59 06:59 Intake Total 1698 1411 Output Total 1730 1602 401 Balance -32 -191 -401 Weight 57.9 kg 57.8 kg Exam: GENERAL: well-nourished and in no acute distress. Alert and oriented x3 HEAD: Atraumatic, normocephalic. EYES: Pupils equal round and reactive to light, extraocular movements intact, sclera anicteric, conjunctiva are normal. ENT: TMs normal, nares patent, oropharynx clear without exudates. Moist mucous membranes. No oral ulcerations or bleeding gums noted NECK: supple without lymphadenopathy. Trachea is central. No cervical or axillary lymphadenopathy noted. Carotids are 2+, JVD WNL LUNGS: Respiration seems nonlabored, no significant accessory muscle action noted. Breath sounds clear to auscultation bilaterally and equal noted. No wheezes rales or rhonchi noted. No significant dullness noted on percussion. CHEST: Palpation of the chest wall shows no significant chest wall tenderness. No other significant abnormalities noted. 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 No rubs, no gallops. ABDOMEN: Soft, no significant tenderness appreciated, normoactive bowel sounds. No guarding, no rebound. No rigidity noted . No masses appreciated. EXTREMITIES: Pedal pulses are 1-2+, no calf tenderness noted. No clubbing or cyanosis. Negative pedal edema noted NEUROLOGICAL: Focused neurological exam showed no significant neurologic deficit. Normal speech, no focal weakness appreciated. PSYCH: Normal mood, normal affect. Judgment and insight within normal limits. SKIN: No significant ecchymosis, rash, ulcerations or signs of pruritus noted. MUSCULOSKELETAL EXAM: No significant joint swelling noted. Results Laboratory Results: 10/19/17 19:20 10/20/17 04:58 EKG Comments: Telemetry strips shows sinus rhythm without any sustained tachycardia or bradycardia arrhythmias. Impressions: Carotid Doppler Study 10/17/17 10:50 IMPRESSION: NO HEMODYNAMICALLY SIGNIFICANT STENOSIS. Chest X-Ray 10/17/17 20:37 IMPRESSION: Mild increased interstitial markings. Basilar subsegmental atelectasis is present in the right lung base. Head CT 10/18/17 13:00 IMPRESSION: NEW AREA OF DECREASED ATTENUATION IN THE LEFT FRONTAL LOBE CONSISTENT WITH EVOLVING INFARCT. NO EVIDENCE OF HEMORRHAGE. EVIDENCE OF ACUTE STROKE: YES. LEFT MCA Pelvis Ultrasound 10/20/17 00:00 IMPRESSION: Mildly distended bladder but there is a large bladder diverticulum. Assessment & Plan - Diagnosis (1) Severe mitral valve stenosis Is this a current diagnosis for this admission?: Yes (2) Acute cerebrovascular accident (CVA) Is this a current diagnosis for this admission?: Yes (3) Hypertension Qualifiers: Hypertension type: essential hypertension Qualified Code(s): I10 - Essential (primary) hypertension Is this a current diagnosis for this admission?: Yes (4) Tobacco abuse Is this a current diagnosis for this admission?: Yes (5) Atrial flutter Qualifiers: Atrial flutter type: unspecified Qualified Code(s): I48.92 - Unspecified atrial flutter Is this a current diagnosis for this admission?: Yes (6) Paroxysmal atrial tachycardia Is this a current diagnosis for this admission?: Yes - Notes Notes: Patient remains clinically stable. No changes in medical regimen performed today. Discussed prognosis with the patient because of his severe mitral stenosis, various symptoms indicative of worsening of mitral stenosis, risk of developing cardiac dysrhythmia and decompensation discussed. Patient advised to avoid significant exertion. Rational for tertiary care referral discussed. Patient to report any recurrence of fever chills etc. Significant time spent discussing the above management plans with the patient. Patient claims lack of insurance. Medical regimen may need to be altered in view of these. Patient remains stable but has multiple chronic problems which would need to be addressed as an outpatient. Patient will definitely benefit from setting up appointments with tertiary care chief strategy officer prior to discharge. This is especially to look at the mitral valve issue. Paroxysmal atrial tachycardia, no significant recurrences. Consider continuing antibiotics for total of 2 weeks. Continue current medications which he seems to be tolerating reasonably well. Will continue to follow patient until discharge. - Time Time with patient: Greater than 35 minutes - CODE STATUS was discussed, patient remains full code. Surrogate decision-maker unchanged. Multiple medical problems were addressed. More than 50% of the time spent coordinating care, discussing management plans with involved caregivers. Management plans discussed with involved personnels. Medical decision making was of moderate to high complexity, patient's has multiple comorbidities. Medications reviewed and adjusted accordingly: Yes
[2017-10-21 13:52] VITALS: BP 123/87
[2017-10-22 14:01] LABS: PROSTATE SPECIFIC ANTIGEN 2.1 ng/mL (0.0-4.0); PSA % FREE 23.8 % (.); PSA FREE 0.5 ng/mL
--- NOTE | 2017-10-25 22:50 | PDOC PROGRESS REPORT ---
Subjective Progress Note for:: 10/18/17 Subjective:: Patient doing well. Patient walked around the unit. He is feeding himself. Patient able to use his right hand which he could not move at the time of the stroke. Patient having urinary retention. Dunbar placed overnight. Reason For Visit: STROKE Physical Exam Vital Signs: Temp Pulse Resp BP Pulse Ox 101.8 F H 106 H 29 H 136/91 H 98 10/18/17 20:00 10/18/17 20:54 10/18/17 20:54 10/18/17 20:54 10/18/17 20:54 Intake & Output 10/17/17 10/18/17 10/19/17 06:59 06:59 06:59 Intake Total 2409 1701 Output Total 2245 1075 Balance 164 626 Weight 56.8 kg General appearance: PRESENT: no acute distress, well-developed, well-nourished Head exam: PRESENT: atraumatic, normocephalic Eye exam: PRESENT: conjunctiva pink, EOMI, PERRLA. ABSENT: scleral icterus Ear exam: PRESENT: normal external ear exam Mouth exam: PRESENT: moist, tongue midline Neck exam: ABSENT: carotid bruit, JVD, lymphadenopathy, thyromegaly Respiratory exam: PRESENT: clear to auscultation ema. ABSENT: rales, rhonchi, wheezes Cardiovascular exam: PRESENT: RRR. ABSENT: diastolic murmur, rubs, systolic murmur Pulses: PRESENT: normal dorsalis pedis pul Vascular exam: PRESENT: normal capillary refill GI/Abdominal exam: PRESENT: normal bowel sounds, soft. ABSENT: distended, guarding, mass, organolmegaly, rebound, tenderness Rectal exam: PRESENT: deferred Extremities exam: PRESENT: full ROM. ABSENT: calf tenderness, clubbing, pedal edema Neurological exam: PRESENT: alert, awake, oriented to person, oriented to place , oriented to time, oriented to situation, CN II-XII grossly intact, aphasic, other - right arm weakness but improved.. ABSENT: motor sensory deficit Psychiatric exam: PRESENT: appropriate affect, normal mood. ABSENT: homicidal ideation, suicidal ideation Skin exam: PRESENT: dry, intact, warm. ABSENT: cyanosis, rash Results Laboratory Results: 10/18/17 04:04 10/18/17 04:04 10/17/17 10/17/17 10/18/17 20:55 21:00 04:04 WBC 7.7 RBC 4.77 Hgb 13.8 Hct 42.2 MCV 89 MCH 28.9 MCHC 32.6 RDW 14.0 Plt Count 301 Seg Neutrophils % 73.4 Lymphocytes % 12.8 L Monocytes % 13.0 Eosinophils % 0.3 Basophils % 0.5 Absolute Neutrophils 5.6 Absolute Lymphocytes 1.0 Absolute Monocytes 1.0 Absolute Eosinophils 0.0 Absolute Basophils 0.0 Sodium 133.9 L Potassium 4.3 Chloride 102 Carbon Dioxide 22 Anion Gap 10 BUN 12 Creatinine 1.08 Est GFR ( Amer) > 60 Est GFR (Non-Af Amer) > 60 Glucose 133 H Calcium 9.0 Magnesium 1.7 Triglycerides Cholesterol LDL Cholesterol Direct VLDL Cholesterol HDL Cholesterol Urine Color YELLOW Urine Appearance CLEAR Urine pH 5.0 Ur Specific [place] 1.008 Urine Protein NEGATIVE Urine Glucose (UA) >=500 H Urine Ketones NEGATIVE Urine Blood NEGATIVE Urine Nitrite NEGATIVE Ur Leukocyte Esterase NEGATIVE Urine WBC (Auto) 0 Urine RBC (Auto) 0 10/18/17 04:04 WBC RBC Hgb Hct MCV MCH MCHC RDW Plt Count Seg Neutrophils % Lymphocytes % Monocytes % Eosinophils % Basophils % Absolute Neutrophils Absolute Lymphocytes Absolute Monocytes Absolute Eosinophils Absolute Basophils Sodium 140.2 Potassium 4.4 Chloride 104 Carbon Dioxide 22 Anion Gap 14 BUN 10 Creatinine 1.06 Est GFR ( Amer) > 60 Est GFR (Non-Af Amer) > 60 Glucose 102 Calcium 8.9 Magnesium Triglycerides 99 Cholesterol 167.95 LDL Cholesterol Direct 108 H VLDL Cholesterol 20.0 HDL Cholesterol 31 L Urine Color Urine Appearance Urine pH Ur Specific [place] Urine Protein Urine Glucose (UA) Urine Ketones Urine Blood Urine Nitrite Ur Leukocyte Esterase Urine WBC (Auto) Urine RBC (Auto) Impressions: Carotid Doppler Study 10/17/17 10:50 IMPRESSION: NO HEMODYNAMICALLY SIGNIFICANT STENOSIS. Chest X-Ray 10/17/17 20:37 IMPRESSION: Mild increased interstitial markings. Basilar subsegmental atelectasis is present in the right lung base. Head CT 10/18/17 13:00 IMPRESSION: NEW AREA OF DECREASED ATTENUATION IN THE LEFT FRONTAL LOBE CONSISTENT WITH EVOLVING INFARCT. NO EVIDENCE OF HEMORRHAGE. EVIDENCE OF ACUTE STROKE: YES. LEFT MCA Assessment & Plan - Diagnosis (1) Acute cerebrovascular accident (CVA) Is this a current diagnosis for this admission?: Yes Plan: Presenting with strokelike symptoms consisting of slurred speech and right arm weakness. Patient was given TPA in the ED. CT scan of the head was normal. Repeat CT head shows left MCA stroke. Patient started on aspirin, plavix and statin. PT/OT following. Patient diet advanced as he is swallowing well. (2) Atrial flutter Qualifiers: Atrial flutter type: unspecified Qualified Code(s): I48.92 - Unspecified atrial flutter Is this a current diagnosis for this admission?: Yes Plan: No arrhythmia discovered. Cardiology recommend starting a CCB. Patient started on diltiazem. No anticoagulation at this time. Patient will need an event monitor on discharge. (3) Hypertension Qualifiers: Hypertension type: essential hypertension Qualified Code(s): I10 - Essential (primary) hypertension Is this a current diagnosis for this admission?: Yes Plan: Will allow for permissive hypertension however patient blood pressure should be treated if systolic blood pressures greater than 185 or diastolic greater than 1 -10 as patient did receive TPA and is at risk for bleeding if hypertensive. Patient blood pressures are low normal. (4) Tobacco abuse Is this a current diagnosis for this admission?: Yes Plan: Metal Cans Supervisor on smoking cessation. Nicotine patch ordered. (5) Urinary retention Is this a current diagnosis for this admission?: Yes Plan: Dunbar placed. Patient started on flomax. Will encourage patient to ambulate. (6) Severe mitral valve stenosis Is this a current diagnosis for this admission?: Yes Plan: Cardiology recommending transfer for [facility]. Will call renae or Janet Ellison to discuss with their order picker/assembler. Patient will not be a candidate for intervention at this time due to acute stroke however he will need follow up. (7) Aspiration pneumonia Is this a current diagnosis for this admission?: Yes Plan: Patient will acute stroke may have developed aspiration pneumonia. Patient was started on clindamycin overnight and blood cultures ordered. - Time Time Spent with patient: 15-24 minutes Medications reviewed and adjusted accordingly: Yes Anticipated discharge: Home, Home with Homehealth - Inpatient Certification Medical Necessity: Significant Comorbidiites Make Outpatient Treatment Too Risky , Need Close Monitoring Due to Risk of Patient Decompensation, Need For Continuous Telemetry Monitoring, Need for IV Antibiotics
--- NOTE | 2017-10-25 23:18 | PDOC PROGRESS REPORT ---
Subjective Subjective:: Patient is still doing well. Patient speech getting better and so is his strength of his right had is getting better. Reason For Visit: STROKE Physical Exam Vital Signs: Temp Pulse Resp BP Pulse Ox 99.7 F 93 35 H 129/115 H 100 10/19/17 16:00 10/19/17 20:00 10/19/17 18:00 10/19/17 17:00 10/19/17 17:00 Intake & Output 10/18/17 10/19/17 10/20/17 06:59 06:59 06:59 Intake Total 2409 2835 1057 Output Total 2245 1570 680 Balance 164 1265 377 Weight 56.8 kg 57.4 kg General appearance: PRESENT: no acute distress, well-developed, well-nourished Head exam: PRESENT: atraumatic, normocephalic Eye exam: PRESENT: conjunctiva pink, EOMI, PERRLA. ABSENT: scleral icterus Ear exam: PRESENT: normal external ear exam Mouth exam: PRESENT: moist, tongue midline Neck exam: ABSENT: carotid bruit, JVD, lymphadenopathy, thyromegaly Respiratory exam: PRESENT: clear to auscultation ema. ABSENT: rales, rhonchi, wheezes Cardiovascular exam: PRESENT: RRR. ABSENT: diastolic murmur, rubs, systolic murmur Pulses: PRESENT: normal dorsalis pedis pul Vascular exam: PRESENT: normal capillary refill GI/Abdominal exam: PRESENT: normal bowel sounds, soft. ABSENT: distended, guarding, mass, organolmegaly, rebound, tenderness Rectal exam: PRESENT: deferred Extremities exam: PRESENT: full ROM. ABSENT: calf tenderness, clubbing, pedal edema Neurological exam: PRESENT: alert, awake, oriented to person, oriented to place , oriented to time, oriented to situation, CN II-XII grossly intact, normal gait , aphasic, other - right arm and hand weakness. ABSENT: motor sensory deficit Psychiatric exam: PRESENT: appropriate affect, normal mood. ABSENT: homicidal ideation, suicidal ideation Skin exam: PRESENT: dry, intact, warm. ABSENT: cyanosis, rash Results Laboratory Results: 10/19/17 19:20 10/19/17 03:54 10/19/17 10/19/17 10/19/17 03:54 03:54 19:20 WBC 7.2 RBC 3.90 L Hgb 11.5 L D Hct 34.4 L MCV 88 MCH 29.5 MCHC 33.5 RDW 14.0 Plt Count 289 Seg Neutrophils % 62.0 Lymphocytes % 21.8 Monocytes % 12.5 Eosinophils % 3.2 Basophils % 0.5 Absolute Neutrophils 4.4 Absolute Lymphocytes 1.6 Absolute Monocytes 0.9 Absolute Eosinophils 0.2 Absolute Basophils 0.0 Sodium 139.7 Potassium 3.8 Chloride 108 H Carbon Dioxide 23 Anion Gap 9 BUN 10 Creatinine 1.15 Est GFR ( Amer) > 60 Est GFR (Non-Af Amer) > 60 Glucose 118 H Calcium 8.5 Magnesium 1.9 10/17/17 21:00 Catheterized Urine Urine Culture - Final NO GROWTH 2 DAYS Impressions: Carotid Doppler Study 10/17/17 10:50 IMPRESSION: NO HEMODYNAMICALLY SIGNIFICANT STENOSIS. Chest X-Ray 10/17/17 20:37 IMPRESSION: Mild increased interstitial markings. Basilar subsegmental atelectasis is present in the right lung base. Head CT 10/18/17 13:00 IMPRESSION: NEW AREA OF DECREASED ATTENUATION IN THE LEFT FRONTAL LOBE CONSISTENT WITH EVOLVING INFARCT. NO EVIDENCE OF HEMORRHAGE. EVIDENCE OF ACUTE STROKE: YES. LEFT MCA Assessment & Plan - Diagnosis (1) Acute cerebrovascular accident (CVA) Is this a current diagnosis for this admission?: Yes Plan: Status post left MCA stroke. Patient was given TPA in the ED. CT scan of the head was normal. Patient started on aspirin, plavix and statin. PT/OT following. Patient has regained strength of his right arm. (2) Atrial flutter Qualifiers: Atrial flutter type: unspecified Qualified Code(s): I48.92 - Unspecified atrial flutter Is this a current diagnosis for this admission?: Yes Plan: No arrhythmia discovered. Cardiology recommend starting a CCB. Patient started on diltiazem. No anticoagulation at this time. Patient will need an event monitor on discharge. (3) Hypertension Qualifiers: Hypertension type: essential hypertension Qualified Code(s): I10 - Essential (primary) hypertension Is this a current diagnosis for this admission?: Yes Plan: Will allow for permissive hypertension however patient blood pressure should be treated if systolic blood pressures greater than 185 or diastolic greater than 1 -10 as patient did receive TPA and is at risk for bleeding if hypertensive. Controlled. (4) Tobacco abuse Is this a current diagnosis for this admission?: Yes Plan: Dispatch Associate on smoking cessation. Nicotine patch ordered. (5) Aspiration pneumonia Is this a current diagnosis for this admission?: Yes Plan: Patient will acute stroke may have developed aspiration pneumonia. Patient febrile despite being on clindamycin. Will switch to vancomycin and zosyn. Cardiology concern about infective endocarditis. Blood cultures with no growth thus far. (6) Severe mitral valve stenosis Is this a current diagnosis for this admission?: Yes Plan: Cardiology recommending transfer for [facility]. Will call clary or Janet Ellison to discuss with their farm contractor buyer. Patient will not be a candidate for intervention at this time due to acute stroke however he will need follow up. Clary states that patient does not need EGD at this time but they will see him as an out patient as this mitral valve stenosis will need to be addressed. (7) Urinary retention Is this a current diagnosis for this admission?: Yes Plan: Dunbar placed. Patient started on flomax. Will encourage patient to ambulate. Will consult urology. - Time Time Spent with patient: Less than 15 minutes Anticipated discharge: Home, Home with Homehealth - Inpatient Certification Medical Necessity: Need For Continuous Telemetry Monitoring, Need for IV Antibiotics
--- NOTE | 2017-10-25 23:57 | PDOC PROGRESS REPORT ---
Subjective Progress Note for:: 10/20/17 Subjective:: Patient is still doing well. Patient would like to go home. Reason For Visit: STROKE Physical Exam Vital Signs: Selected Entries 10/20/17 23:40 Temperature 97.7 F Temperature Oral Source Pulse Rate 85 Respiratory 24 H Rate Blood Pressure 116/79 [Left Upper Arm ] Blood Pressure 91 Mean [Left Upper Arm] Blood Pressure Supine Position [Left Upper Arm] O2 Sat by Pulse 98 Oximetry Oxygen Delivery Room Air Method ( includes room air) General appearance: PRESENT: no acute distress, well-developed, well-nourished Head exam: PRESENT: atraumatic, normocephalic Eye exam: PRESENT: conjunctiva pink, EOMI, PERRLA. ABSENT: scleral icterus Ear exam: PRESENT: normal external ear exam Mouth exam: PRESENT: moist, tongue midline Neck exam: ABSENT: carotid bruit, JVD, lymphadenopathy, thyromegaly Respiratory exam: PRESENT: clear to auscultation ema, rhonchi. ABSENT: rales, wheezes Cardiovascular exam: PRESENT: RRR. ABSENT: diastolic murmur, rubs, systolic murmur Pulses: PRESENT: normal dorsalis pedis pul Vascular exam: PRESENT: normal capillary refill GI/Abdominal exam: PRESENT: normal bowel sounds, soft. ABSENT: distended, guarding, mass, organolmegaly, rebound, tenderness Rectal exam: PRESENT: deferred Gentrourinary exam: PRESENT: indwelling catheter Extremities exam: PRESENT: full ROM. ABSENT: calf tenderness, clubbing, pedal edema Neurological exam: PRESENT: alert, awake, oriented to person, oriented to place , oriented to time, oriented to situation, CN II-XII grossly intact. ABSENT: motor sensory deficit Psychiatric exam: PRESENT: appropriate affect, normal mood. ABSENT: homicidal ideation, suicidal ideation Skin exam: PRESENT: dry, intact, warm. ABSENT: cyanosis, rash Results Laboratory Results: 10/19/17 19:20 10/20/17 04:58 10/18/17 17:52 Blood Blood Culture - Final NO GROWTH IN 5 DAYS 10/18/17 16:00 Blood Blood Culture - Final NO GROWTH IN 5 DAYS Impressions: Carotid Doppler Study 10/17/17 10:50 IMPRESSION: NO HEMODYNAMICALLY SIGNIFICANT STENOSIS. Chest X-Ray 10/17/17 20:37 IMPRESSION: Mild increased interstitial markings. Basilar subsegmental atelectasis is present in the right lung base. Head CT 10/18/17 13:00 IMPRESSION: NEW AREA OF DECREASED ATTENUATION IN THE LEFT FRONTAL LOBE CONSISTENT WITH EVOLVING INFARCT. NO EVIDENCE OF HEMORRHAGE. EVIDENCE OF ACUTE STROKE: YES. LEFT MCA Pelvis Ultrasound 10/20/17 00:00 IMPRESSION: Mildly distended bladder but there is a large bladder diverticulum. Assessment & Plan - Diagnosis (1) Acute cerebrovascular accident (CVA) Is this a current diagnosis for this admission?: Yes Plan: Status post left MCA stroke. Patient was given TPA in the ED. CT scan of the head was normal. Continue aspirin, plavix and statin. PT/OT following. Patient has regained strength of his right arm. (2) Atrial flutter Qualifiers: Atrial flutter type: unspecified Qualified Code(s): I48.92 - Unspecified atrial flutter Is this a current diagnosis for this admission?: Yes Plan: No arrhythmia discovered. Cardiology recommend starting a CCB. Patient started on diltiazem. No anticoagulation at this time. Patient will need an event monitor on discharge. (3) Hypertension Qualifiers: Hypertension type: essential hypertension Qualified Code(s): I10 - Essential (primary) hypertension Is this a current diagnosis for this admission?: Yes Plan: Will allow for permissive hypertension however patient blood pressure should be treated if systolic blood pressures greater than 185 or diastolic greater than 110 as patient did receive TPA and is at risk for bleeding if hypertensive. Controlled. (4) Tobacco abuse Is this a current diagnosis for this admission?: Yes Plan: Medical Records Tech on smoking cessation. Nicotine patch ordered. (5) Aspiration pneumonia Is this a current diagnosis for this admission?: Yes Plan: Patient will acute stroke may have developed aspiration pneumonia. Patient febrile despite being on clindamycin. Continue zosyn. Will discontinue vancomycin. Cardiology concern about infective endocarditis. Blood cultures with no growth thus far x 3 sets. Patient now afebrile. Due to negative cultures it is unlikely that patient has endocarditis. (6) Severe mitral valve stenosis Is this a current diagnosis for this admission?: Yes Plan: Cardiology recommending transfer for [facility]. Will call clary or Janet Ellison to discuss with their floorworker lasting. Patient will not be a candidate for intervention at this time due to acute stroke however he will need follow up. Clary/Janet Ellison states that patient does not need EGD at this time but they will see him as an out patient as this mitral valve stenosis will need to be addressed. (7) Urinary retention Is this a current diagnosis for this admission?: Yes Plan: Kaur placed. Patient started on flomax. Will encourage patient to ambulate. Urology recommend discontinuing kaur and I/O cath PRN for stated volume. Started on proscar. Check PSA and bladder US. - Time Time Spent with patient: Less than 15 minutes Anticipated discharge: Home, Home with Homehealth - Inpatient Certification Medical Necessity: Need for IV Antibiotics
--- NOTE | 2017-10-26 05:26 | PDOC DISCHARGE SUMMARY ---
General - Admit/Disc Date/PCP Admission Date/Primary Care Provider: 10/17/17 10:46 Discharge Date: 10/21/17 - Discharge Diagnosis (1) Acute cerebrovascular accident (CVA) Is this a current diagnosis for this admission?: Yes (2) Atrial flutter Is this a current diagnosis for this admission?: Yes (3) Hypertension Is this a current diagnosis for this admission?: Yes (4) Tobacco abuse Is this a current diagnosis for this admission?: Yes (5) Aspiration pneumonia Is this a current diagnosis for this admission?: Yes (6) Severe mitral valve stenosis Is this a current diagnosis for this admission?: Yes (7) Urinary retention Is this a current diagnosis for this admission?: Yes - Additional Information Resuscitation Status: Full Code Discharge Diet: Cardiac Discharge Activity: Activity As Tolerated Prescriptions: Aspirin [Aspirin 325 mg Tablet] 325 mg PO DAILY #30 tablet Atorvastatin Calcium [Lipitor 80 mg Tablet] 80 mg PO QHS #30 tablet Clopidogrel Bisulfate [Plavix 75 mg Tablet] 75 mg PO DAILY #30 tablet Diltiazem HCl [Cardizem 30 mg Tablet] 30 mg PO Q12 #60 tablet Levofloxacin [Levaquin 500 mg Tablet] 500 mg PO DAILY #5 tablet Tamsulosin HCl [Flomax 0.4 mg Cap.sr] 0.4 mg PO PCSUPPER #30 cap.sr.24h Home Medications: Oxycodone HCl/Acetaminophen [Percocet 5-325 mg Tablet] 1 tab PO Q6HP PRN Aspirin [Aspirin 325 mg Tablet] 325 mg PO DAILY #30 tablet 10/21/17 Atorvastatin Calcium [Lipitor 80 mg Tablet] 80 mg PO QHS #30 tablet 10/21/17 Clopidogrel Bisulfate [Plavix 75 mg Tablet] 75 mg PO DAILY #30 tablet 10/21/17 Diltiazem HCl [Cardizem 30 mg Tablet] 30 mg PO Q12 #60 tablet 10/21/17 Finasteride [Proscar 5 mg Tablet] 5 mg PO DAILY #30 tablet 10/21/17 Levofloxacin [Levaquin 500 mg Tablet] 500 mg PO DAILY #5 tablet 10/21/17 Tamsulosin HCl [Flomax 0.4 mg Cap.sr] 0.4 mg PO PCSUPPER #30 cap.sr.24h History of Present Illness History of Present Illness: MANAV ENGEL is a right-handed 56 year old male history of hypertension and atrial flutter presenting with strokelike symptoms to the ED. Per patient friend who was with him the ED. Patient was fine on their way to work. He asked patient for his badge and when he looked over patient could not move his right hand. Patient speech became slurred and patient had drooping of the face. He immediately brought him here. In the ED patient was given TPA. Patient started she felt some improvement of his stroke symptoms. ED called the hospitalist to admit the patient for stroke following TPA administration. History and physical dictated by Dr. Branham. Please refer to it for complete details. Hospital Course Hospital Course: Patient presented with right arm weakness and slurred speech consistent with a strop. Patient was within the window for TPA and therefore was administered TPA and admitted to the ICU. In [address] head showed left MCA stroke and no bleed. Patient started on aspirin, plavix and statin. PT/OT and speech consulted. Patient regained strength of his right arm and his speech improved. [facility] was consulted and he agreed that the work up was appropriate and that the patient will need an event monitor. Patient shortly after developed a fever thought to be due to aspiration. Patient was started on clindamycin then switched to zosyn and vancomycin as her remained persistently febrile. Patient had cultures drawn. There was concern for possible endocarditis however this became less likely with 3 sets of negative blood cultures. Patient did have urinary retention for which he was treated with an indwelling kaur. Patient was started on flomax and proscar. Ultrasound of the bladder was done to look for BPH and urology was consulted. Patient was encouraged to ambulate, kaur was removed and patient voided on his own with little difficulty. Patient was started on CCB for possible history of atrial flutter although not seen during this hospitalization. For this reason patient was not anticoagulated. Patient will need an event monitor on discharge. Patient was referred to cardiology in [facility] or in [facility] where he is from. Patient noted to have sever mitral stenosis on echo. Attempts were made to send patient to [facility] and [facility] for [facility] however it was stated on both occasions that this is not appropriate at this time however patient will definitely need follow up as an outpatient. Patient counseled on tobacco cessation. Physical Exam Vital Signs: Temp Pulse Resp BP Pulse Ox 97.6 F 78 22 H 123/87 H 100 10/21/17 13:49 10/21/17 13:49 10/21/17 13:49 10/21/17 13:49 10/21/17 13:49 General appearance: PRESENT: no acute distress, well-developed, well-nourished Head exam: PRESENT: atraumatic, normocephalic Eye exam: PRESENT: conjunctiva pink, EOMI, PERRLA. ABSENT: scleral icterus Ear exam: PRESENT: normal external ear exam Mouth exam: PRESENT: moist, tongue midline Neck exam: ABSENT: carotid bruit, JVD, lymphadenopathy, thyromegaly Respiratory exam: PRESENT: clear to auscultation ema. ABSENT: rales, rhonchi, wheezes Cardiovascular exam: PRESENT: RRR. ABSENT: diastolic murmur, rubs, systolic murmur Pulses: PRESENT: normal dorsalis pedis pul Vascular exam: PRESENT: normal capillary refill GI/Abdominal exam: PRESENT: normal bowel sounds, soft. ABSENT: distended, guarding, mass, organolmegaly, rebound, tenderness Rectal exam: PRESENT: deferred Extremities exam: PRESENT: full ROM. ABSENT: calf tenderness, clubbing, pedal edema Neurological exam: PRESENT: alert, awake, oriented to person, oriented to place , oriented to time, oriented to situation, CN II-XII grossly intact. ABSENT: motor sensory deficit Psychiatric exam: PRESENT: appropriate affect, normal mood. ABSENT: homicidal ideation, suicidal ideation Skin exam: PRESENT: dry, intact, warm. ABSENT: cyanosis, rash Results Laboratory Results: 10/19/17 19:20 10/20/17 04:58 10/18/17 17:52 Blood Blood Culture - Final NO GROWTH IN 5 DAYS 10/18/17 16:00 Blood Blood Culture - Final NO GROWTH IN 5 DAYS Impressions: Carotid Doppler Study 10/17/17 10:50 IMPRESSION: NO HEMODYNAMICALLY SIGNIFICANT STENOSIS. Chest X-Ray 10/17/17 20:37 IMPRESSION: Mild increased interstitial markings. Basilar subsegmental atelectasis is present in the right lung base. Head CT 10/18/17 13:00 IMPRESSION: NEW AREA OF DECREASED ATTENUATION IN THE LEFT FRONTAL LOBE CONSISTENT WITH EVOLVING INFARCT. NO EVIDENCE OF HEMORRHAGE. EVIDENCE OF ACUTE STROKE: YES. LEFT MCA Pelvis Ultrasound 10/20/17 00:00 IMPRESSION: Mildly distended bladder but there is a large bladder diverticulum. Qualifiers PATEINT BEING DISCHARGED WITH ANY OF THE FOLLOWING DIAGNOSIS?: Stroke Stroke Pt being discharged on Anti-thrombolytic therapy?: Yes Stroke Pt being discharged on Anti-coagulation therapy?: No Stroke Pt being discharged on Statins?: Yes PR Pt being discharged on Statins?: Yes PR Pt discharged ACEI/ARBS?: No HF Pt being discharged on ACEI for LVEF less than 40%?: No HF Pt being discharged on ARBS for LVEF less than 40%?: No HF Pt with Afib discharged with Warfarin?: No HF Pt discharged on evidence-based Beta Apoorva:: No Plan Time Spent: Greater than 30 Minutes - Patient being discharge home to follow up with cardiology for event monitor for possible arrhythmia leading to stroke. Patient will also need to follow up for mitral stenosis.
== END 2017-10-21 14:15 | disposition home or self-care (01) | DRG 61 ==
LOC: ER 08:49 → EH 10:46 → UNDOADMIN 10:50 → EH 10:50 → ICU 12:41
PROVIDERS: ADMIT Pediatrics; ATTEND Pediatrics
PROC: 3E03317 Introduction of Other Thrombolytic into Peripheral Vein, Percutaneous Approach (ICD-10-PCS; principal; 2017-10-17)
PROC: 3E0F73Z Introduction of Anti-inflammatory into Respiratory Tract, Via Natural or Artificial Opening (ICD-10-PCS; 2017-10-17)
DX: I63.412 Cerebral infarction due to embolism of left middle cerebral artery (principal); J69.0 Pneumonitis due to inhalation of food and vomit; I33.0 Acute and subacute infective endocarditis; I48.92 Unspecified atrial flutter; I47.1 Supraventricular tachycardia; I10 Essential (primary) hypertension; E11.9 Type 2 diabetes mellitus without complications; F17.210 Nicotine dependence, cigarettes, uncomplicated; I05.0 Rheumatic mitral stenosis; R33.9 Retention of urine, unspecified; R29.810 Facial weakness; R47.81 Slurred speech; I48.91 Unspecified atrial fibrillation; Z79.82 Long term (current) use of aspirin; Z79.891 Long term (current) use of opiate analgesic; Z79.899 Other long term (current) drug therapy; Z82.49 Family history of ischemic heart disease and other diseases of the circulatory system; Z82.3 Family history of stroke; Z83.3 Family history of diabetes mellitus; Z80.9 Family history of malignant neoplasm, unspecified
CPT/HCPCS: 36415; 70450; 71010; 76857; 80048; 80053; 80061; 80202; 80307; 81001; 82550; 82553; 82962; 83036; 83735; 84154; 84484; 85025; 85610; 85730; 87040; 87070; 87086; 87205; 93005; 93010; 93306; 93880; 94640; 94799; 96365; 99291; J1885; J2543; J2997; J3370; J3475; J3490; J7030; J7060; J7620; S0164